=== PATIENT | female | born 1970 | race Caucasian/White ===

== ENCOUNTER 2018-10-28 16:05 | Emergency (ER) | payer OTHER ==
--- OUTSIDE RECORDS SUMMARY | 2018-10-28 16:42 | XMS REPORT ---
:1970 External Reference #:[id number] Author Organization [facility] Address [address] [place] [address] Phone [phone] Care Team Providers Name Role Phone Sharon Mendoza Care Team Information Bait Man Unavailable Sharon Mendoza Primary Care Physician Unavailable Payers Type Date Identification Numbers Payment Provider Subscriber Commercial Effective: Policy Number: [id number] Benefit Admin Carlos Bradshaw 2018 Pull Group Number: [id number] [address] [place] [phone] Problems Date Description Provider Status Onset: 08/17/2011 Depressive disorder Sharon Mendoza M.D. Active Onset: 08/17/2011 Dysmenorrhea Sharon Mendoza M.D. Active Onset: 08/17/2011 Allergic condition Sharon Mendoza M.D. Active Onset: 06/30/2013 Insomnia Sharon Mendoza M.D. Active Onset: 12/25/2015 Palpitations Sharon Mendoza M.D. Active Family History Date Family Member(s) Problem(s) Comments General No family hx lung colon breast CA. no uterine cervical, ovarian CA. No fam hx Diabetes Father ministrokes. Dementia. lives in [place]. Mother Healthy. smoker. Number of Children None First Brother healthy. [place]. First Sister healthy. Lives in [place]. Paternal Grandmother dementia. Maternal Grandfather [place] 60. Social History Type Date Description Comments Education Mfa from [facility]. Marital Status Patient has a significant other living independently since 12/2016. 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 General Grew up in [place]. Cigarette Use Never Smoked Cigarettes ETOH Use Occasional 1-2 glasses wine monthly. Smoking Nonsmoker Exercise Type/Frequency Exercises regularly. Walks Current 1/2 hour to an hour 5 times weekly. Seat Belt/Car Seat Always uses a seat belt Condom Use Patient frequently uses condoms Allergies, Adverse Reactions, Alerts Date Description Reaction Status Severity Comments 09/20/2011 Bupropion Jittery active 09/20/2011 5- HTP extremely vivid/disturbing dreams. active 06/15/2013 Reglan many reactions active 03/30/2017 Coconut active 06/29/2011 NKDA inactive Medications Medication Date Status Form Strength Qnty SIG Indications Ordering Provider Vitamin D 03/30/ Active 1200Iu/Dr 4 drops a Sharon Will 2016 fop day. Naomi Mendoza Nasonex 05/25/ Active Suspension 50mcg/Act 17uni 2 sprays J30.89 Sharon Will 2015 ts in each kan Mendoza M.D. daily Epipen 2-Shaun 06/29/ Active Device 0.3mg/0.3 1unit use as Sharon Will 2010 ML s directed Naomi Mendoza Claritin / Active Tablets 10mg 1 po qd Unknown 0000 Cholestyramine / Active Packet 4gm 1 unit by Unknown 0000 mouth every day Viberzi 10/13/ Hx Tablets 75mg 60tab 1 by mouth K58.0 Sharon Will 2015 twice Kelly, 12/11/ daily with M.DXena 2017 food Cipro 09/20/ Hx Tablets 250mg 14tab 1 by mouth R19.7 Sharon Will 2015 twice a Kelly 12/11/ day x 7 d M.DXena 2016 Vitamin D 02/10/ Hx Capsules [id number] 12cap take 1 E55.9 Sharon Will (Ergocalciferol) 2015 capsule by Kelly, 05/18/ mouth once M.D. 2016 weekly for 12 weeks. Meclizine HCL 02/10/ Hx Tablets 12.5mg 50tab 1-2 by H81.11 Sharon Will 2015 mouth four Kelly, 05/18/ times a M.D. 2016 day as needed dizziness Azithromycin 01/18/ Hx Tablets 250mg 6tabs 2 po 786.2 Sharon Will 2013 - . 1 Kelly, 06/14/ po daily x M.D. 2013 4 Ventolin HFA 01/18/ Hx Aerosol 108(90Bas 1unit 2 puffs 786.2 Sharon Will 2013 - e) s qid Kelly, 10/26/ mcg/Act M.D. 2019 Benzonatate 12/25/ Hx Capsules 200mg 90cap 1 po tid 462 Sharon Will 2013 - s Kelly, 01/17/ M.D. 2013 Valerian 08/21/ Hx Sharon Will 2012 - Kelly, 08/21/ M.D. 2012 Return To Work Hx full duty 780.52 Sharon Will 07/02/20132012 - Kelly, 07/09/ M.D. 2012 Nystatin 06/15/ Hx Suspension [id number] 150ml swish and Sharon Will 2012 - t/ML spit 5 ml Kelly, 06/30/ qid M.D. 2012 Valium 06/14/ Hx Tablets 2mg 45tab 1-3 pills Sharon Will 2012 - s at hs for Kelly, 01/17/ sleep pu M.D. 2013 dt Mycelex 06/13/ Hx Marjan 10mg 25uni use 5 x Francisco Morales 2013 - ts a day Breiman, 06/30/ M.D. 2012 Cefuroxime 06/09/ Hx Tablets 500mg 42tab 1 po bid x Sharon Will Axetil 2012 - s 21 days Kelly, 06/13/ M.D. 2012 Doxycycline 06/07/ Hx Tablets 100mg 42tab 1 po bid x 780.60 Sharon Will Hyclate 2012 - s 21 days on Kelly, 06/11/ empty M.D. 2013 stomach. Zofran 06/07/ Hx Tablets 4mg 60tab 1-2 po tid 787.01 Sharon Will 2012 - s Kelly, 06/13/ M.D. 2013 Ambien 02/19/ Hx Tablets 5mg 60tab 1-2 po 780.52 Sharon Will 2012 - s qhs prn Kelly, M.DXena 2012 Omeprazole 02/07/ Hx Capsules DR 20mg 30cap 1 po qd 789.06 Sharon Will 2011 - s Kelly, 05/05/ M.D. 2011 Ibuprofen 06/29/ Hx Capsules 200mg prn, prior Sharon Will 2010 - to Kelly, . MXenaD. 2011 Claritin / Hx Tablets 10mg 10tab 1 po qd Unknown 0000 - s 2011 Progesterone / Hx Capsules 150mg 90cap 1 by mouth Unknown 0000 - s qhs 2012 Progesterone / Hx Capsules Unknown 0000 - 2013 Iron / Hx Tablets 325(65Fe) 1 by mouth Unknown 0000 - mg twice a 2015 Immunizations CPT Code Status Date Vaccine Lot # [id number] Given 05/24/2012 Tdap Tetanus, W Pertussis Vital Signs Date Vital Result Comment 10/26/2018 BP Systolic 92 mmHg BP Diastolic 68 mmHg Heart Rate 84 /min Body Temperature 97.6 F Respiratory Rate 18 /min Height 61.5 inches 5'1.50" stated Weight 120.50 lb BMI (Body Mass Index) 22.4 kg/m2 10/19/2017 BP Systolic 100 mmHg BP Diastolic 62 mmHg Heart Rate 68 /min Body Temperature 97.8 F Height 61.5 inches 5'1.50" stated Weight 114.38 lb BMI (Body Mass Index) 21.3 kg/m2 03/30/2017 BP Systolic 100 mmHg BP Diastolic 70 mmHg Heart Rate 80 /min Body Temperature 98.8 F Respiratory Rate 16 /min Weight 113.00 lb 01/29/2017 BP Systolic 100 mmHg BP Diastolic 70 mmHg Heart Rate 68 /min Body Temperature 98.8 F Respiratory Rate 18 /min Weight 112.00 lb 12/11/2016 BP Systolic 90 mmHg BP Diastolic 60 mmHg Heart Rate 78 /min Body Temperature 98.8 F Respiratory Rate 16 /min Height 60 inches 5'0" Weight 113.12 lb BMI (Body Mass Index) 22.1 kg/m2 10/13/2016 BP Systolic 110 mmHg BP Diastolic 66 mmHg Heart Rate 78 /min Body Temperature 98.0 F Respiratory Rate 16 /min Height 60 inches 5'0" Weight 118.25 lb BMI (Body Mass Index) 23.1 kg/m2 09/20/2016 BP Systolic 100 mmHg BP Diastolic 60 mmHg Heart Rate 60 /min Body Temperature 99.1 F Respiratory Rate 16 /min Height 60 inches 5'0" Weight 124.00 lb BMI (Body Mass Index) 24.2 kg/m2 05/25/2016 BP Systolic 100 mmHg BP Diastolic 60 mmHg Heart Rate 68 /min Body Temperature 98.1 F Respiratory Rate 16 /min Height 60 inches 5'0" Weight 120.00 lb BMI (Body Mass Index) 23.4 kg/m2 Right Visual Acuity Distance 20/20 Left Visual Acuity Distance 20/20 05/18/2016 BP Systolic 90 mmHg BP Diastolic 60 mmHg Heart Rate 76 /min Body Temperature 98.8 F Respiratory Rate 16 /min Height 60.5 inches 5'0.50" Weight 120.00 lb BMI (Body Mass Index) 23.0 kg/m2 04/06/2016 BP Systolic 90 mmHg BP Diastolic 60 mmHg Heart Rate 60 /min Body Temperature 98.6 F Respiratory Rate 18 /min Height 60.5 inches 5'0.50" Weight 123.00 lb BMI (Body Mass Index) 23.6 kg/m2 02/11/2016 BP Systolic 102 mmHg BP Diastolic 70 mmHg Heart Rate 72 /min Body Temperature 98.6 F Height 60.5 inches 5'0.50" Weight 124.00 lb BMI (Body Mass Index) 23.8 kg/m2 12/25/2015 BP Systolic 100 mmHg BP Diastolic 60 mmHg Heart Rate 60 /min Body Temperature 98.0 F Respiratory Rate 18 /min Height 60.5 inches 5'0.50" Weight 120.00 lb BMI (Body Mass Index) 23.0 kg/m2 10/13/2015 BP Systolic 124 mmHg BP Diastolic 74 mmHg Heart Rate 84 /min Body Temperature 99.9 F Respiratory Rate 16 /min Height 60.5 inches 5'0.50" Weight 121.12 lb BMI (Body Mass Index) 23.3 kg/m2 06/14/2014 BP Systolic 100 mmHg BP Diastolic 66 mmHg Heart Rate 84 /min Body Temperature 97.0 F Respiratory Rate 16 /min Height 60.5 inches 5'0.50" Weight 121.00 lb BMI (Body Mass Index) 23.2 kg/m2 01/18/2014 BP Systolic 104 mmHg BP Diastolic 70 mmHg Heart Rate 96 /min Body Temperature 96.8 F Height 60.5 inches 5'0.50" Weight 121.50 lb BMI (Body Mass Index) 23.3 kg/m2 12/25/2013 BP Systolic 98 mmHg BP Diastolic 62 mmHg Heart Rate 80 /min Body Temperature 101.2 F Respiratory Rate 16 /min Height 60.5 inches 5'0.50" Weight 128.00 lb BMI (Body Mass Index) 24.6 kg/m2 08/21/2013 BP Systolic 118 mmHg BP Diastolic 68 mmHg Heart Rate 80 /min Body Temperature 98.3 F Respiratory Rate 14 /min Height 60.5 inches 5'0.50" Weight 128.00 lb BMI (Body Mass Index) 24.6 kg/m2 07/09/2013 BP Systolic 100 mmHg BP Diastolic 60 mmHg Heart Rate 92 /min Body Temperature 99.3 F Height 60.5 inches 5'0.50" Weight 133.00 lb BMI (Body Mass Index) 25.5 kg/m2 06/30/2013 BP Systolic 120 mmHg BP Diastolic 70 mmHg Heart Rate 78 /min Body Temperature 98.1 F Respiratory Rate 16 /min Height 60.5 inches 5'0.50" Weight 133.38 lb BMI (Body Mass Index) 25.6 kg/m2 06/13/2013 BP Systolic 110 mmHg BP Diastolic 80 mmHg Heart Rate 84 /min Body Temperature 98.8 F Respiratory Rate 15 /min Height 60.5 inches 5'0.50" Weight 135.00 lb BMI (Body Mass Index) 25.9 kg/m2 06/07/2013 BP Systolic 120 mmHg BP Diastolic 70 mmHg Heart Rate 80 /min Body Temperature 99.7 F Respiratory Rate 16 /min Height 60.5 inches 5'0.50" Weight 142.00 lb BMI (Body Mass Index) 27.3 kg/m2 04/24/2013 BP Systolic 80 mmHg BP Diastolic 52 mmHg Heart Rate 64 /min Body Temperature 98.2 F Respiratory Rate 16 /min Height 60.5 inches 5'0.50" Weight 144.00 lb BMI (Body Mass Index) 27.7 kg/m2 02/19/2013 BP Systolic 116 mmHg BP Diastolic 66 mmHg Heart Rate 60 /min Body Temperature 98.2 F Respiratory Rate 16 /min Height 60.5 inches 5'0.50" Weight 146.12 lb BMI (Body Mass Index) 28.1 kg/m2 10/27/2012 BP Systolic 110 mmHg BP Diastolic 74 mmHg Heart Rate 66 /min Body Temperature 97.5 F Height 60.5 inches 5'0.50" Weight 144.00 lb BMI (Body Mass Index) 27.7 kg/m2 09/30/2012 BP Systolic 102 mmHg BP Diastolic 68 mmHg Heart Rate 68 /min Body Temperature 98.9 F Height 60.5 inches 5'0.50" Weight 145.00 lb BMI (Body Mass Index) 27.8 kg/m2 05/05/2012 BP Systolic 102 mmHg BP Diastolic 62 mmHg Heart Rate 66 /min Body Temperature 98.6 F Height 60.5 inches 5'0.50" Weight 143.00 lb BMI (Body Mass Index) 27.5 kg/m2 02/08/2012 BP Systolic 92 mmHg BP Diastolic 70 mmHg Heart Rate 62 /min Body Temperature 98.9 F Respiratory Rate 20 /min Height 60.5 inches 5'0.50" Weight 142.00 lb BMI (Body Mass Index) 27.3 kg/m2 01/12/2012 BP Systolic 90 mmHg BP Diastolic 60 mmHg Heart Rate 84 /min Body Temperature 98.8 F Height 60.5 inches 5'0.50" Weight 142.00 lb BMI (Body Mass Index) 27.3 kg/m2 09/20/2011 BP Systolic 100 mmHg BP Diastolic 70 mmHg Heart Rate 80 /min Body Temperature 98.7 F Height 60.5 inches 5'0.50" Weight 142.00 lb BMI (Body Mass Index) 27.3 kg/m2 08/17/2011 BP Systolic 94 mmHg BP Diastolic 56 mmHg Heart Rate 72 /min Height 60.5 inches 5'0.50" Weight 141.00 lb BMI (Body Mass Index) 27.1 kg/m2 Right Visual Acuity Distance 20/20 uncorrected Left Visual Acuity Distance 20/20 06/29/2011 BP Systolic 108 mmHg BP Diastolic 60 mmHg Heart Rate 60 /min Body Temperature 97.2 F Height 60.5 inches 5'0.50" Weight 141.00 lb BMI (Body Mass Index) 27.1 kg/m2 Results Test Date Test Result H/L Range Note Laboratory test finding 11/24/2017 Iron (Fe) 56 g/dL 50-212 Ferritin 50.3 ng/mL 11-307 Estradiol 239 pg/mL 1 Vitamin D Total 25(Oh) 56.4 ng/mL High 20-50 Progesterone 0.5 ng/mL 2 Dhea Sulfate 101 g/dL 18-244 3 Testosterone Free & Total 11/24/2017 Free Testosterone ng/dl 0.44 ng/dL 0.06-0.95 4 Testosterone 23 ng/dL 8-60 5 CBC Auto Diff 03/04/2017 White Blood Count 11.3 10^3/uL High 3.5-10.8 Red Blood Count 4.08 10^6/uL 4.0-5.4 Hemoglobin 13.0 g/dL 12.0-16.0 Hematocrit 39 % 35-47 Mean Corpuscular Volume 96 fL 80-97 Mean Corpuscular Hemoglobin 32 pg High 27-31 Mean Corpuscular HGB Conc 33 g/dL 31-36 Red Cell Distribution Width 14 % 10.5-15 Platelet Count 216 10^3/uL 150-450 Mean Platelet Volume 9 um3 7.4-10.4 Abs Neutrophils 7.5 10^3/uL 1.5-7.7 Abs Lymphocytes 2.8 10^3/uL 1.0-4.8 Abs Monocytes 0.6 10^3/uL 0-0.8 Abs Eosinophils 0.3 10^3/uL 0-0.6 Abs Basophils 0.1 10^3/uL 0-0.2 Abs Nucleated RBC 0 10^3/uL Granulocyte % 66.5 % 38-83 Lymphocyte % 24.6 % Low 25-47 Monocyte % 5.7 % 1-9 Eosinophil % 2.4 % 0-6 Basophil % 0.8 % 0-2 Nucleated Red Blood Cells % 0 Laboratory test finding 03/04/2017 Magnesium 2.1 mg/dL 1.9-2.7 Iron (Fe) 83 g/dL 50-212 TSH (Thyroid Stim Horm) 4.86 mcIU/mL 0.34-5.60 Free T4 (Free Thyroxine) 0.67 ng/dL 0.61-1.12 T3 Free 2.80 pg/mL 2.5-3.9 Ferritin 36.0 ng/mL 11-307 Folic Acid (Folate) > 20.00 ng/mL >3.99 Vitamin B12 814 pg/mL 180-914 6 Vitamin D Total 25(Oh) 75.8 ng/mL High 30-50 Dhea Sulfate 142 g/dL 18-244 7 Selenium 104 ng/mL 70-150 8 Vitamin B1 (Whole Blood) 149 nmol/L 70-180 9 Laboratory test 11/25/2016 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 SEE RESULT BELOW 10 finding Laboratory test 11/15/2016 Surgical Pathology SEE RESULT BELOW 11, 12 finding Laboratory test 10/01/2016 C Difficile PCR SEE RESULT BELOW 13 finding Lyme Western Blot 09/30/2016 Lyme Disease IgG Ab Negative Negative WB Lyme Disease IgG Bands Present p41, kDa Lyme Disease IgM Ab WB Negative Negative Lyme Disease IgM Bands Present p41, kDa Lyme Disease Interpretation See Comment 14 Laboratory test finding 09/21/2016 Stool Culture SEE RESULT BELOW 15 Laboratory test finding 06/11/2016 Urine Negative Negative 16 Comprehensive Metabolic 05/25/2016 Sodium 139 mEq/L 134-149 Prof Potassium 4.6 mEq/L 3.6-5.5 Chloride 103 mEq/L 94-112 Carbon Dioxide 25 mEq/L 21-32 Glucose 112 mg/dL High 70-105 BUN 13 mg/dL 6-26 Creatinine 0.6 mg/dL 0.6-1.4 BUN/Creat Ratio 21.7 CALC 8.0-36.0 Calcium 8.7 mg/dL 8.6-10.2 Total Protein 7.1 g/dL 6.4-8.3 Albumin 3.9 g/dL 3.8-5.5 Globulin 3.2 g/dL 2.0-4.8 A/G Ratio 1.2 CALC 0.6-2.3 Alk. Phosphatase 47 U/L 30-110 Alt (SGPT) 12 U/L 7-35 Ast (Sgot) 13 U/L 5-34 Total Bilirubin 0.2 mg/dL 0.2-1.3 GFR Non- >60 ml/min/1.73m^ >=60 GFR >60 ml/min/1.73m^ >=60 Laboratory test finding 04/06/2016 Ferritin 25 ng/mL 15-200 17 Laboratory test finding 12/25/2015 Ferritin 12 ng/mL Low 15-200 TSH 1.55 mIU/L 0.50-6.00 Free T4 1.20 ng/dL 0.75-1.54 Vitamin D25 20 Low 30-100 Laboratory test finding 10/07/2015 Magnesium 2.0 mg/dL 1.9-2.7 Troponin I 0.00 ng/mL <0.03 18 TSH (Thyroid Stim Horm) 2.32 ?IU/mL 0.34-5.60 Comp Metabolic Panel 10/07/2015 Sodium 134 mmol/L 133-145 Potassium 3.7 mmol/L 3.5-5.0 Chloride 103 mmol/L 101-111 Co2 Carbon Dioxide 24 mmol/L 22-32 Anion Gap 7 mmol/L 2-11 Glucose 152 mg/dL High 70-100 Blood Urea Nitrogen 8 mg/dL 6-24 Creatinine 0.84 mg/dL 0.51-0.95 BUN/Creatinine Ratio 9.5 8-20 Calcium 9.2 mg/dL 8.6-10.3 Total Protein 7.6 g/dL 6.4-8.9 Albumin 4.5 g/dL 3.2-5.2 Globulin 3.1 g/dL 2-4 Albumin/Globulin Ratio 1.5 1-3 Total Bilirubin 0.50 mg/dL 0.2-1.0 Alkaline Phosphatase 42 U/L 34-104 Alt 10 U/L 7-52 Ast 14 U/L 13-39 Egfr Non- 73.3 >60 Egfr 94.3 >60 19 CBC Auto Diff 10/07/2015 White Blood Count 7.9 10^3/uL 3.5-10.8 Red Blood Count 4.45 10^6/uL 4.0-5.4 Hemoglobin 14.5 g/dL 12.0-16.0 Hematocrit 43 % 35-47 Mean Corpuscular Volume 96 fL 80-97 Mean Corpuscular Hemoglobin 33 pg High 27-31 Mean Corpuscular HGB Conc 34 g/dL 31-36 Red Cell Distribution Width 13 % 10.5-15 Platelet Count 237 10^3/uL 150-450 Mean Platelet Volume 8 um3 7.4-10.4 Abs Neutrophils 6.2 10^3/uL 1.5-7.7 Abs Lymphocytes 1.2 10^3/uL 1.0-4.8 Abs Monocytes 0.4 10^3/uL 0-0.8 Abs Eosinophils 0 10^3/uL 0-0.6 Abs Basophils 0.1 10^3/uL 0-0.2 Abs Nucleated RBC 0 10^3/uL Granulocyte % 78.4 % 38-83 Lymphocyte % 15.1 % Low 25-47 Monocyte % 5.2 % 1-9 Eosinophil % 0.5 % 0-6 Basophil % 0.8 % 0-2 Nucleated Red Blood Cells % 0 Laboratory test finding 12/25/2013 Quickstrep NEGATIVE Negative Throat - Beta Strep Fma NEG@48HRS Clotest 10/19/2013 Clotest (SEE NOTE) 20 Surgical Pathology 10/19/2013 S RUN DATE: 10/22/ <SEE 21 NOTE> Laboratory test finding 08/21/2013 TSH 0.98 mIU/L 0.50-6.00 Comprehensive Metabolic Prof 06/30/2013 Albumin 4.5 g/dL 3.8-5.5 Alk. Phos. 79 U/L 30-110 Alt (SGPT) 37 U/L High 7-35 22 Ast (Sgot) 26 U/L 5-34 BUN 12 mg/dL 6-26 Calcium 9.7 mg/dL 8.6-10.2 Chloride 100 mEq/L 94-112 Creatinine 0.7 mg/dL 0.6-1.4 Carbon Dioxide 25 mEq/L 21-32 Glucose 89 mg/dL 70-105 Sodium 134 mEq/L 134-149 Total Bilirubin 0.6 mg/dL 0.2-1.3 Total Protein 7.7 g/dL 6.3-8.1 Potassium 4.3 mEq/L 3.6-5.5 Globulin 3.2 g/dL 2.0-4.8 A/G Ratio 1.4 Calc 0.6-2.3 BUN/Creat Ratio 16.6 Calc 8.0-36.0 Vitamin D, 25 Hydroxy 06/30/2013 25-Hydroxy Vitamin D2 <4.0 ng/mL 25-Hydroxy Vitamin D3 32 ng/mL 25-Hydroxy Vitamin D Total 32 ng/mL 23 CBC Electronic (a) 06/13/2013 WBC 14.1 High 3.6-9.6 24 RBC 4.33 3.90-5.70 Hemoglobin (Fma/CMC/CTX) 13.5 g/dL 12.1 - 17.2 Hematocrit (Fma/CMC/CTX) 40.1 % 36.1 - 50.3 Platelets 359 10^3/ul 150-400 Lymph% 28.0 20.5-51.1 Mixed% 7.5 Neutrophils % 64.5 Mean Corpuscular Vol 92 82.2-97.4 Mean Corpuscular Hemoglobin 31.0 27.6-33.3 Mean Corpuscular Hemo Concen 33.6 32.0-36.0 RDW 12.0 11.6-13.7 Mean Platelet Volume 7.3 6.5-11.0 Hepatitis Acute Panel 06/13/2013 Hepatitis B Surface Nonreactive Nonreactive Antigen Hepatitis B Core IgM Nonreactive Nonreactive Hepatitis A AB IgM Nonreactive Nonreactive Hepatitis C Antibody Nonreactive Nonreactive Comprehensive Metabolic Prof 06/13/2013 Albumin 4.5 g/dL 3.8-5.5 Alk. Phos. 259 U/L High 30-110 25 Alt (SGPT) 534 U/L High 7-35 26 Ast (Sgot) 164 U/L High 5-34 27 BUN 7 mg/dL 6-26 Calcium 9.3 mg/dL 8.6-10.2 Chloride 100 mEq/L 94-112 Creatinine 0.8 mg/dL 0.6-1.4 Carbon Dioxide 27 mEq/L 21-32 Glucose 111 mg/dL High 70-105 28 Sodium 135 mEq/L 134-149 Total Bilirubin 1.0 mg/dL 0.2-1.3 Total Protein 7.4 g/dL 6.3-8.1 Potassium 4.4 mEq/L 3.6-5.5 Globulin 2.9 g/dL 2.0-4.8 A/G Ratio 1.6 Calc 0.6-2.3 BUN/Creat Ratio 8.6 Calc 8.0-36.0 CBC Auto Diff 06/08/2013 White Blood Count 3.6 10^3/uL Low 4.8-10.8 Red Blood Count 4.37 10^6/uL 4.0-5.4 Hemoglobin 13.7 g/dL 12.0-16.0 Hematocrit 40 % 35-47 Mean Corpuscular Volume 90 fL 80-97 Mean Corpuscular Hemoglobin 31 pg 27-31 Mean Corpuscular HGB Conc 35 g/dL 31-36 Red Cell Distribution Width 13 % 10.5-15 Platelet Count 110 10^3/uL Low 150-450 Mean Platelet Volume 9 um3 7.4-10.4 Abs Neutrophils 2.4 10^3/uL 1.5-7.7 Abs Lymphocytes 1.1 10^3/uL 1.0-4.8 Abs Monocytes 0.1 10^3/uL 0-0.8 Abs Eosinophils 0 10^3/uL 0-0.6 Abs Basophils 0 10^3/uL 0-0.2 Abs Nucleated RBC 0.01 10^3/uL Granulocyte % 65.4 % 38-83 Lymphocyte % 29.9 % 25-47 Monocyte % 3.0 % 1-9 Eosinophil % 0.8 % 0-6 Basophil % 0.9 % 0-2 Nucleated Red Blood Cells % 0.2 Comp Metabolic Panel 06/08/2013 Sodium 129 mmol/L Low 133-145 Potassium 3.3 mmol/L Low 3.5-5.0 Chloride 97 mmol/L Low 101-111 Co2 Carbon Dioxide 24.0 mmol/L 22-32 Anion Gap 8.0 mmol/L 2-11 Glucose 111 mg/dL High 70-100 Blood Urea Nitrogen 8 mg/dL 6-24 Creatinine 0.80 mg/dL 0.50-1.40 BUN/Creatinine Ratio 10.0 8-20 Calcium 8.5 mg/dL 8.1-9.9 Total Protein 6.9 g/dL 6.2-8.1 Albumin 3.6 g/dL 3.6-5.4 Globulin 3.3 g/dL 2-4 Albumin/Globulin Ratio 1.1 1-3 Total Bilirubin 3.0 mg/dL High 0.4-1.5 Alkaline Phosphatase 224 U/L High 30-110 Alt 99 U/L High 14-54 Ast 96 U/L High 12-42 Egfr Non- 78.3 >60 Egfr 100.7 >60 29 Laboratory test finding 06/08/2013 Monospot Negative Negative Laboratory test finding 06/07/2013 Babesiosis Evaluation <1:64 titer <1: 64 30 CBC Electronic (a) 06/07/2013 WBC 4.8 3.6-9.6 RBC 4.62 3.90-5.70 Hemoglobin (Fma/CMC/CTX) 14.5 g/dL 12.1 - 17.2 Hematocrit (Fma/CMC/CTX) 43.0 % 36.1 - 50.3 Platelets 117 10^3/ul Low 150-400 Lymph% 8.0 Low 20.5-51.1 Mixed% 3.7 Neutrophils % 88.3 Mean Corpuscular Vol 93 82.2-97.4 Mean Corpuscular Hemoglobin 31.3 27.6-33.3 Mean Corpuscular Hemo Concen 33.7 32.0-36.0 RDW 11.1 Low 11.6-13.7 Mean Platelet Volume 6.9 6.5-11.0 Comprehensive Metabolic Prof 06/07/2013 Albumin 4.1 g/dL 3.8-5.5 Alk. Phos. 172 U/L High 30-110 31 Alt (SGPT) 118 U/L High 7-35 32 Ast (Sgot) 115 U/L High 5-34 33 BUN 14 mg/dL 6-26 Calcium 8.5 mg/dL Low 8.6-10.2 34 Chloride 96 mEq/L 94-112 Creatinine 1.0 mg/dL 0.6-1.4 Carbon Dioxide 25 mEq/L 21-32 Glucose 105 mg/dL 70-105 Sodium 126 mEq/L Low 134-149 35 Total Bilirubin 3.3 mg/dL High 0.2-1.3 36 Total Protein 6.8 g/dL 6.3-8.1 Potassium 3.7 mEq/L 3.6-5.5 Globulin 2.6 g/dL 2.0-4.8 A/G Ratio 1.6 Calc 0.6-2.3 BUN/Creat Ratio 15.2 Calc 8.0-36.0 Total And Direct Bili 06/07/2013 Direct Bilirubin 2.3 mg/dL High 0.0-0.6 Indirect Bilirubin 1.03 High 0.10-1.00 Laboratory test finding 06/07/2013 Monospot (Fma/Centrex) NEGATIVE Lyme Western Blot 06/07/2013 Lyme Disease IgG Ab WB Negative Negative Lyme Disease IgG Bands Present p41, kDa Lyme Disease IgM Ab WB Negative Negative Lyme Disease IgM Bands Present No bands detecte <SEE NOTE> kDa 37 Lyme Disease Interpretation See Comment 38 Ehrlichia Igg & Igm Abs 06/07/2013 Anaplasma phagocytophila IgG <1:64 titer <1:64 39 Ehrlichia chaffeensis IgG AB <1:64 titer <1:64 40 Laboratory test 05/12/2013 Lyme Disease Negative Negative 41 finding Serology Laboratory test 04/29/2013 [facility] Lab Test HORMONE REPORT See Image Report finding CBC Electronic 02/19/2013 WBC 10.2 High 3.6-9.6 (Fma) RBC 4.13 3.90-5.70 Hemoglobin (Fma/CMC/CTX) 13.0 g/dL 12.1 - 17.2 Hematocrit (Fma/CMC/CTX) 38.6 % 36.1 - 50.3 Platelets 264 10^3/ul 150-400 Lymph% 27.7 20.5-51.1 Mixed% 4.5 Neutrophils % 67.8 Mean Corpuscular Vol 94 82.2-97.4 Mean Corpuscular Hemoglobin 31.5 27.6-33.3 Mean Corpuscular Hemo Concen 33.7 32.0-36.0 RDW 13.7 11.6-13.7 Mean Platelet Volume 6.7 6.5-11.0 Laboratory test finding 02/19/2013 Ferritin 18 ng/mL 6-115 Laboratory test finding 10/27/2012 TSH 1.43 mIU/L 0.50-6.00 Laboratory test finding 10/27/2012 Prolactin 19.2 ng/ml 42, 43 CBC Auto Diff 05/13/2012 White Blood Count 11.4 CUMM High 4.8-10.8 Red Cell Count 3.97 CUMM Low 4.2-5.4 Hemoglobin 13.0 g/dL 12.0-16.0 Hematocrit 37 % 35-47 Mean Corpuscular Volume 93 um3 79-97 Mean Corpuscular Hemoglob 33 pg High 27-31 Mean Corpuscular HGB Cone 35 g/dL 32-36 Redcell Distribution WDTH 13 % 10.5-15 Platelet Count 253 CUMM 150-450 Mean Platelet Volume 8.0 um3 7.4-10.4 Gran % 77.1 % 38-83 Lymph % 15.5 % Low 20-45 Mononuclear % 5.2 % 1-9 Eosinophil % 1.7 % 0-6 Basophil % 0.5 % 0-2 Abs Lymphs 1.8 1.0-4.8 Abs Mononuclear 0.6 0-0.8 Absolute Neutrophil Count 8.8 High 1.5-7.7 Abs Eosinophils 0.2 0-0.6 Abs Basophils 0.1 0-0.2 Laboratory test finding 05/13/2012 (HCG) Serum NEGATIVE Negative 44 Comp Metabolic Panel 05/13/2012 Sodium 137 mmol/L 135-145 Potassium 4.1 mmol/L 3.5-5.0 Chloride 106 mmol/L 101-111 Co2 (Carbon Dioxide) 26.0 mmol/L 22-32 Anion Gap 5.0 mmol/L 2-11 45 Glucose 97 mg/dL 70-100 BUN 11 mg/dL 6-24 Creatinine 0.8 mg/dL 0.50-1.40 One Over Creatinine 1.25 BUN/Creatinine Ratio 13.8 8-20 Calcium 9.3 mg/dL 8.1-9.9 Total Protein 7.5 GM/DL 6.2-8.1 Albumin 4.0 GM/DL 3.6-5.4 Globulin 3.5 GM/DL 2-4 Albumin/Globulin Ratio 1.1 1-3 Bilirubin Total 0.5 mg/dL 0.4-1.5 46 Alkaline Phosphatase 45 U/L 30-110 Alt (SGPT) 18 U/L 14-54 Ast (Sgot) 23 U/L 12-42 eGFR Non- 78.7 > 60 eGFR 101.2 > 60 47 Laboratory test finding 05/13/2012 Magnesium 2.0 mg/dL 1.7-2.6 Laboratory test finding 05/05/2012 Hemoglobin A1c ([facility] [place]) 5.3 % 4.1- 5.7 Lipid Profile 05/05/2012 Cholesterol 191 mg/dL 120-200 HDL 45 mg/dL 30-85 Triglycerides 80 mg/dL 30-200 HDL Risk Factor 4.2 CALC High 0.0-4.0 LDL (Calculated) 130 CALC High 0-129 VLDL (Calculated) 16 mg/dL 0-50 [place] Pylori Antigen- 02/09/2012 M <SEE NOTE> 48 Stool Ua - Non Micro ([facility]) 02/08/2012 Appearance CLEAR Color YELLOW Glucose NEG Bilirubin NEG Ketones NEG SP Grav 1.010 Blood TRACE-LYSED no micro per provide PH 5.5 Protein NEG Urobil 0.2 Nitrite NEG Leukocytes (a/[facility] [place]) NEG Laboratory test finding 08/31/2011 Vitamin D, 25 Oh 36.9 ng/mL 32.0- 100.0 49 Comprehensive Metabolic Prof 08/31/2011 Albumin 4.4 g/dL 3.8-5.5 Alk. Phos. 48 U/L 30-110 Alt (SGPT) 16 U/L 7-35 Ast (Sgot) 17 U/L 5-34 BUN 15 mg/dL 6-26 Calcium 8.8 mg/dL 8.6-10.2 Chloride 104 mEq/L 94-112 Creatinine 0.8 mg/dL 0.6-1.4 Carbon Dioxide 21 mEq/L 21-32 Glucose 105 mg/dL 70-105 Sodium 135 mEq/L 134-149 Total Bilirubin 0.4 mg/dL 0.2-1.3 Total Protein 6.9 g/dL 6.3-8.1 Potassium 4.3 mEq/L 3.6-5.5 Globulin 2.5 g/dL 2.0-4.8 A/G Ratio 1.7 Calc 0.6-2.2 BUN/Creat Ratio 18.3 Calc 8.0-36.0 Laboratory test finding 08/31/2011 Free T3 2.85 pg/mL 2.00-4.90 Free T4 0.96 ng/dL 0.75-1.54 TSH 1.67 mIU/L 0.50-6.00 Lipid Profile 08/31/2011 Cholesterol 173 mg/dL 120-200 HDL 44 mg/dL 30-85 Triglycerides 65 mg/dL 30-200 HDL Risk Factor 3.9 CALC 0.0-4.0 LDL (Calculated) 116 CALC 0-129 VLDL (Calculated) 13 mg/dL 0-50 CBC Electronic ([facility]) 08/31/2011 WBC 6.2 3.6-9.6 RBC 3.85 Low 3.90-5.70 Hemoglobin (Fma/CMC/CTX) 12.3 g/dL 12.1 - 17.2 Hematocrit (a/CMC/CTX) 35.9 % Low 36.1 - 50.3 Platelets 290 10^3/ul 150-400 Lymph% 28.9 20.5-51.1 Mixed% 6.7 Neutrophils % 64.4 Mean Corpuscular Vol 93 82.2-97.4 Mean Corpuscular Hemoglobin 32.0 27.6-33.3 Mean Corpuscular Hemo Concen 34.3 32.0-36.0 RDW 11.7 11.6-13.7 Mean Platelet Volume 7.9 6.5-11.0 Laboratory test finding 08/17/2011 Urine Culture No growth. Ua - Micro ([facility]) 08/17/2011 Appearance clear Color yellow Glucose, Urine (a/CMC/CTX) - Bilirubin - Ketones - SP Grav 1.020 Blood trace PH 7.0 Protein - Urobil 0.2 Nitrite - Leukocytes (a/[facility]) small Hyaline - /Lpf Granular - /Lpf WBC (Fma,[facility]) 6-8 RBC 0-1 Mucus (Fma/CBC/[facility]) - /Lpf Epith few /Lpf Bacteria trace /Hpf Amorphous (Fma/CMC/[facility]) - /Lpf Crystals, Fluid (Fma/CMC/CTX) - Z#Comments - 1 Estradiols <40 pg/mL are sent to a reference lab for low range testing. Postmenopausal Females < 20 Ovulating females: by day in cycle relative to LH Peak Follicular phase - 12 10-50 - 4 60-200 Mid-cycle - 1 120-375 Luteal phase + 2 50-155 + 6 60-260 + 12 15-115 2 Female reference ranges for Progesterone: Follicular phase.......0.3 - 1.5 ng/ml Mid-luteal phase.......5.2 - 18.5 ng/ml Postmenopausal.........< 0.8 ng/ml 1st trimester.........4.7 - 50.0 ng/ml 2nd trimester.........19.4 - 45.3 ng/ml 3 Test Performed by: [facility] [employer] [facility] [employer] [address] [place] [address] 4 ADDITIONAL INFORMATION Testing performed by [facility]. This test was developed and its performance characteristics determined by [facility] in a manner consistent with CLIA requirements. This test has not been cleared or approved by the U.S. Food and Drug Administration. 5 ADDITIONAL INFORMATION Testing performed by Liquid Chromatography-Tandem Mass Spectrometry (LC-MS/MS). This test was developed and its performance characteristics determined by [facility] in a manner consistent with CLIA requirements. This test has not been cleared or approved by the U.S. Food and Drug Administration. Test Performed by: [facility] [employer] [address] [place] [address] 6 Normal Range 180 to 914 Indeterminate Range 145 to 180 Deficient Range <145 7 Test Performed by: [facility] - [address] [address] 8 ADDITIONAL INFORMATION This test was developed and its performance characteristics determined by [facility] in a manner consistent with CLIA requirements. This test has not been cleared or approved by the U.S. Food and Drug Administration. Test Performed by: [facility] - [address] [address] 9 ADDITIONAL INFORMATION This test was developed and its performance characteristics determined by [facility] in a manner consistent with CLIA requirements. This test has not been cleared or approved by the U.S. Food and Drug Administration. Test Performed by: [facility] - [address] [address] 10 SEE RESULT BELOW Name: LEEANN,CARLOS E : [address]: Uday Oshea MD Acct: [id number] Unit: [id number] AGE: 45 Location: THYROID Re11/25/16 SEX: F Status: REG REF SPEC: [id number] WHITNEY: 11/25/16-[address]: Arianne Wall MD REQ: [id number] RECD: 11/25/16 STATUS: PARIS HART DR: Uday Mendoza MD _ ORDERED: FN ASP DEEP, FNA Imme St Add, FNA IMMEDIATE S FINAL DIAGNOSIS Thyroid, left inferior, Ultrasound guided, fine needle aspiration: --Benign thyroid nodule- involutional type (Irwin Class II). The specimen demonstrates abundant watery proteinaceous fluid, a modest amount of benign appearing follicular epithelium arranged in uniform sheets, medium sized follicles and only occasional small groups. Abundant pigmented and non-pigmented macrophages are seen in the background. No features of papillary carcinoma are seen. In this clinical setting the risk of malignancy is less than 3%. Clinical management of this thyroid nodule should be based on clinical and radiographic features as well as the above findings. THYROID LEFT - US GUIDED FINE NEEDLE ASPIRATION LEFT INFERIOR CLINICAL HISTORY Left inferior thyroid nodule 2.7cm CONTINUED ON NEXT PAGE * ML=Testing performed at Main Lab DEPARTMENT OF PATHOLOGY, [address] [place] [address] Alf Villarreal M.D. Director [facility] # [id number] RUN DATE: 11/25/16 [facility] LAB LIVE PAGE 2 Patient: CARLOS BRADSHAW Matt [id number] (Continued) IMMEDIATE INTERPRETATION (Continued) IMMEDIATE INTERPRETATION Pass 1-inadequate, pass 2-adequate GROSS DESCRIPTION 4- alcohol fixed slide(s) 2 - passes Needle rinse in CytoLyt solution for thin layer non-right of way clearer test. Signed (signature on file) Kat Decker MD 12/10 1104 END OF REPORT * ML=Testing performed at Main Lab DEPARTMENT OF PATHOLOGY, [address] [place] [address] Alf Villarreal M.D. Director [facility] # [id number] 11 [id number] 12 SEE RESULT BELOW Name: CARLOS BRADSHAW Matt : [address]: Stanford Suarez MD Acct: [id number] Unit: [id number] AGE: 45 Location: ENDOCEC Re11/15/16 SEX: F Status: DEP REF SPEC: [id number] WHITNEY: 11/15/16-[address]: Stanford Suarez MD REQ: [id number] RECD: 11/15/16-1601 STATUS: PARIS HART DR: Sharon Mendoza MD _ ORDERED: LEVEL IV COMMENTS: [id number] FINAL DIAGNOSIS Colon, random, biopsy: -- Lymphocytic colitis. CLINICAL HISTORY Diarrhea POST-OPERATIVE DIAGNOSIS Colonoscopy into terminal ileum, prep good - normal, no ileitis, colitis, polyp, biopsies obtained. Conclusions/Plan: Normal colonoscopy GROSS DESCRIPTION The specimen is received in formalin labeled, Random Colon Biopsies, and consists of three webster-pink irregular to polypoid soft tissue fragments measuring 0.3 x 0.2 x 0.1 cm 0.3 x 0.2 a 0.2 cm and 0.5 x 0.3 x 0.1 cm; which are entirely submitted in one cassette. Signed (signature on file) Kat Decker MD 1056 END OF REPORT * ML=Testing performed at Main Lab DEPARTMENT OF PATHOLOGY, [address] [place] [address] Alf Villarreal M.D. Director [facility] # [id number] 13 SEE RESULT BELOW Name: CARLOS BRADSHAW : [address]: Sharon Mendoza MD Acct: [id number] Unit: [id number] AGE: 45 Location: [facility] Re10/01/16 SEX: F Status: REG REF SPEC: [id number] WHITNEY: 10/01/16-[address] [facility] [address]: Sharon Mendoza MD REQ: [id number] RECD: 10/01/16 STATUS: COMP _ SOURCE: STOOL SPDESC: ORDERED: C. diff PCR Procedure Result Reported Site Stool Specimen Description Final 10/01/16- 1209 ML Stool Color Brown Stool Form Nonformed Stool Consistency Liquid Mucoid C. difficile PCR Final 10/01/16- 1252 ML Organism 1 027 Presumptive NEGATIVE Organism 2 Toxigenic C.diff NEGATIVE * ML - MAIN LAB ([facility]) . END OF REPORT * ML=Testing performed at Main Lab DEPARTMENT OF PATHOLOGY, [address] [place] [address] Alf Villarreal M.D. Director [facility] # [id number] 14 Specific serologic response to B. burgdorferi infection is not detected, but cannot rule out early infection during which low or undetectable antibody levels to B. burgdorferi may be present. If clinically indicated, a new serum specimen should be submitted in 7-14 days. ADDITIONAL INFORMATION CDC criteria require >=5 bands for IgG or >=2 bands for IgM for the Immunoblot to be considered positive. Bands (e.g.,p41) may be detected in patients without Lyme disease, and patterns not meeting the CDC criteria should be interpreted with caution. Immunoblot should be ordered only on specimens that are positive or equivocal by a FDA-licensed Lyme disease antibody screening test (e.g., EIA). Test Performed by: [place] [address] Business Attorney: Ganga Blanton II, M.D., Ph.D. 15 SEE RESULT BELOW Name: CARLOS BRADSHAW : [address]: Sharon Mendoza MD Acct: [id number] Unit: [id number] AGE: 45 Location: [facility] Re09/21/16 SEX: F Status: REG REF SPEC: [id number] WHTINEY: 09/21/[address]: Sharon Mendoza MD REQ: [id number] RECD: 09/21/16 STATUS: COMP _ SOURCE: STOOL SPDESC: ORDERED: Stool Culture, O P: Giar/Crypt Procedure Result Reported Site Stool Culture Final 09/23/16- 0953 ML Result No enteric pathogens isolated Testing for Salmonella, Shigella, Aeromonas, Plesiomonas, Yersinia and Campylobacter are included in a Stool Culture. Vibrio spp not routinely tested for in a stool culture. If testing is desired, please request specifically when placing test order. Sensitivities not routinely performed on stool isolates, as antibiotics may prolong the carriage rate of bacteria. Please contact the microbiology lab if sensitivities are required. Stool Specimen Description Final 09/21/16- 1245 ML Stool Color Brown Stool Form Nonformed Stool Consistency Liquid Shiga Toxin 1 2 Final 09/22/16- 0912 ML Organism 1 Negative Shiga Toxin 1 2 Immunochromatographic Assay CONTINUED ON NEXT PAGE * ML=Testing performed at [facility] Lab DEPARTMENT OF PATHOLOGY, [address] [place] [address] Alf Villarreal M.D. Director [facility] # [id number] Patient: CARLOS BRADSHAW [id number] (Continued) Specimen: [id number] Collected: 09/21/16 Received: 09/21/16 (Continued) Procedure Result Reported Site Shiga Toxin 1 2 Final (continued) 09/22/16- 911 O P: Giardia/Cryptospor Screen Final 09/21/16- 1504 ML Organism 1 Neg Cryptosporidium/Giardia Giardia and cryptosporidium antigen testing performed by enzyme immunoassay. If patient is immunocompromised or has traveled to or is from a developing country, a full ova and parasite exam with microscopic (OPMIC) is recommended. All samples will be held one month in case full ova and parasite testing is requested. Contact the Microbiology Department at [phone]. TEST LIMITATIONS: As with all diagnostic procedures, the results obtained should be used in conjunction with other clinical information available the physician, including confirmation by another method. Negative results can occur in samples containing antigen below lower limits of detection of the assay. One negative specimen does not rule out the possibility of a parasitic infection. To improve detection it is recommended that three specimens be collected on separate days over a period of not more than seven days. The use of colonic washes, aspirates or other diluted sample types has not been established and could affect the performance of the assay. Stool samples contaminated with an oily or particulate base (eg. Barium, mineral oil etc.) could interfere with the test and are not recommended. * ML - MAIN LAB ([facility]) . END OF REPORT * ML=Testing performed at Main Lab DEPARTMENT OF PATHOLOGY, [address] [place] [address] Alf Villarreal M.D. Director [facility] # [id number] 16 If is still suspected, please repeat test after 48 to 72 hours. This test detects intact HCG only and is indicated for the early detection of . 09 august 2106. 18 Reference Range and Interpretation: TnI (ng/mL) Interpretation Less Than 0.03 ng/mL Not supportive of diagnosis of MT 0.03 - 0.50 ng/mL Indeterminate: suggest serial studies if clinically indicated. Greater than 0.5 ng/mL Consistent with diagnosis of MT 19 Because ethnic data is not always readily available, this report includes an eGFR for both -Americans and non- Americans. The National Kidney Disease Education Program (NKDEP) does not endorse the use of the MDRD equation for patients that are not between the ages of 18 and 70, are , have extremes of body size, muscle mass, or nutritional status, or are non- or non-. According to the National Kidney Foundation, irrespective of diagnosis, the stage of the disease is based on the level of kidney function: Stage Description GFR(mL/min/1.73 m(2)) 1 Kidney damage with normal or decreased GFR 90 2 Kidney damage with mild decrease in GFR 60-89 3 Moderate decrease in GFR 30-59 4 Severe decrease in GFR 15-29 5 Kidney failure <15 (or dialysis) 20 RUN DATE: 10/20/13 [facility] LAB LIVE PAGE 1 RUN TIME: [address] [place] [address] Specimen Inquiry Name: CARLOS BRADSHAW : [address]: Stanford Suarez MD Acct: [id number] Unit: [id number] AGE: 42 Location: ENDO Re10/19/13 SEX: F Status: REG REF SPEC: [id number] WHITNEY: 10/19/[address]: Stanford Suarez MD REQ: [id number] RECD: 10/19/13 STATUS: COMP OTHR DR: Sharon Mendoza MD _ SOURCE: [facility]: ORDERED: Clotest Procedure Result Verified Site Clotest Final 10/20/13725 ML Clotest Negative END OF REPORT * ML=Testing performed at Main Lab DEPARTMENT OF PATHOLOGY, [facility] [employer] [place], [place] [address] Alf Villarreal M.D. Director [facility] Permit #[id number] 21 RUN DATE: 10/22/13 [facility] LAB LIVE PAGE 1 RUN TIME: [address] [facility] [address] [place], [place] [address] Specimen Inquiry Name: CARLOS BRADSHAW : [address]: Stanford Suarez MD Acct: [id number] Unit: [id number] AGE: 42 Location: ENDO Re10/19/13 SEX: F Status: REG REF SPEC: [id number] WHITNEY: 10/19/13- SUBM DR: Stanford Suarez MD REQ: [id number] RECD: 10/19/13 STATUS: PARIS HART DR: Mckayla Mendoza MD _ ORDERED: LEVEL IV FINAL DIAGNOSIS Small bowel, duodenum, biopsies: A. Small bowel mucosa with normal villous architecture and no significant pathologic abnormality. B. No evidence of viropathic changes or infectious agents identified. CLINICAL HISTORY Abdominal pain, GERD, globus sensation for EGD POST-OPERATIVE DIAGNOSIS Esophagus - normal, no erosion/stricture or Wheat's esophagus. Stomach - normal, no ulcer, gastritis, Duodenal bulb to third portion. Normal EGD. GROSS DESCRIPTION The specimen is received in formalin labeled Carlos Bradshaw Duodenal Biopsies and consists of a 0.9 x 0.8 x 0.3 cm. aggregate of multiple, webster-pink, irregular soft tissue fragments. Submitted entirely, one cassette. Signed (signature on file) Alf Villarreal MD 1449 END OF REPORT * ML=Testing performed at Main Lab DEPARTMENT OF PATHOLOGY, [address] [place] [address] Alf Villarreal M.D. Director [facility] Permit #[id number] 22 result riley'd 23 -- REFERENCE VALUE -- 25-HYDROXY D TOTAL (D2+D3) Optimum levels in the healthy population are 20-50, patients with bone disease may benefit from higher levels within this range. Test Performed by: [facility] - [address] [address] Business Attorney: Robbie Robbins III, M.D. 24 results riley. 25 result riley'd 26 resultreck'd 27 result riley'd 28 result riley'd 29 Because ethnic data is not always readily available, this report includes an eGFR for both -Americans and non- Americans. The National Kidney Disease Education Program (NKDEP) does not endorse the use of the MDRD equation for patients that are not between the ages of 18 and 70, are , have extremes of body size, muscle mass, or nutritional status, or are non- or non-. According to the National Kidney Foundation, irrespective of diagnosis, the stage of the disease is based on the level of kidney function: Stage Description GFR(mL/min/1.73 m(2)) 1 Kidney damage with normal or decreased GFR 90 2 Kidney damage with mild decrease in GFR 60-89 3 Moderate decrease in GFR 30-59 4 Severe decrease in GFR 15-29 5 Kidney failure <15 (or dialysis) 30 Analyte Specific Reagent: This test was developed and its performance characteristics determined by [facility]. It has not been cleared or approved by the U.S. Food and Drug Administration. Test Performed by: [facility] - [address] [address] Business Attorney: Robbie Robbins III, M.D. 31 RESULT RILEY'D 32 RESULT RILEY'D 33 RESULT RILEY'D 34 RESULT RILEY'D 35 RESULT RILEY'D 36 RESULT RILEY'D 37 No bands detected 38 Specific serologic response to B. burgdorferi infection is not detected, but cannot rule out early infection during which low or undetectable antibody levels to B. burgdorferi may be present. If clinically indicated, a new serum specimen should be submitted in 7-14 days. CDC criteria require >=5 bands for IgG or >=2 bands for IgM for the Immunoblot to be considered positive. Bands (e.g.,p41) may be detected in patients without Lyme disease, and patterns not meeting the CDC criteria should be interpreted with caution. Immunoblot should be ordered only on specimens that are positive or equivocal by a FDA-licensed Lyme disease antibody screening test (e.g., EIA). Test Performed by: [place] [address] Business Attorney: Robbie Robbins III, M.D. 39 Analyte Specific Reagent: This test was developed and its performance characteristics determined by [facility]. It has not been cleared or approved by the U.S. Food and Drug Administration. 40 Analyte Specific Reagent: This test was developed and its performance characteristics determined by [facility]. It has not been cleared or approved by the U.S. Food and Drug Administration. Test Performed by: [place] [address] Business Attorney: Robbie Robbins III, M.D. 41 Serologic response to B. burgdorferi infection is not detected, but cannot rule out early infection during which low or undetectable antibody levels to B. burgdorferi may be present. If clinically indicated, a new serum specimen should be submitted in 7-14 days. Test Performed by: [place] [address] Business Attorney: Robbie Robbins III, M.D. 42 1 43 . FEMALES: Non : 2.8-29.2 : 9.7-208.5 Postmenopausal : 1.8-20.3 MALES:................: 2.1-17.7 . 44 If is still suspected, please repeat test after 48 to 72 hours. . This test detects intact HCG only and is indicated for the early detection of . 45 Anion gap measurement may be of limited value in the presence of any alkalosis, especially in a combined acid base disorder. . 46 A metabolite of Naproxen, O-desmethylnaproxen, has been shown to interfere with the [place] method for measuring total bilirubin. Samples from patients who have taken Naproxen have shown spurious elevation in total bilirubin levels. 47 Because ethnic data is not always readily available, this report includes an eGFR for both -Americans and non- Americans. The National Kidney Disease Education Program (NKDEP) does not endorse the use of the MDRD equation for patients that are not between the ages of 18 and 70, are , have extremes of body size, muscle mass, or nutritional status, or are non- or non-. According to the National Kidney Foundation, irrespective of diagnosis, the stage of the disease is based on the level of kidney function: Stage Description GFR(mL/min/1.73 m(2)) 1 Kidney damage with normal or decreased GFR 90 2 Kidney damage with mild decrease in GFR 60-89 3 Moderate decrease in GFR 30-59 4 Severe decrease in GFR 15-29 5 Kidney failure <15 (or dialysis) 48 RUN DATE: 02/11/12 [facility] NMI LIVE PAGE 1 RUN TIME: 900 Specimen Inquiry RUN USER: INTERFACE Name: CARLOS BRADSHAW Matt Shipley#: [id number] Status: REG REF Re02/09/12 Age/Sex: 41/F Unit#: [id number] Location: Teddy Pratt : [birth year] SPEC #: [id number] WHITNEY: 02/09/12-999 STATUS: COMP REQ #: [id number] RECD: 02/09/12-[address] [facility] [address]: Kelly HEAD,Sharon Will SOURCE: STOOL ENTR: 02/09/12-[address]: JADEN: ORDERED: H. PYLORI AG ACT WKST: SO 02/11/12 #1 Procedure Result Verified Site > HELICO PYLORI ANTIGEN- STOOL Final 02/11/12- 0900 ML HELICOBACTER PYLORI AG, F NEGATIVE Test performed by: [facility] [address] [place] [address] - [facility] State Permit #[id number] [facility] [address] [facility] [place] [address] DEPARTMENT OF PATHOLOGY, [facility] DATES [place], [place] [address] [facility] Permit #[id number] Alf Villarreal M.D. Director Mariusz Lewis M.D. [employer] 49 Effective September 13, 2011 Vitamin D, 25-Hydroxy reference intervals will be changing to 30-100. . Recent studies consider the lower limit of 32.0 ng/mL to be a threshold for optimal health. Donaldo BW. J Nutr. 2004;135(2):317-22. Procedures Date CPT Code Description Status Comment 12/12/2017 88176 Dxa Bone Density Study One Or Completed More Sites Axial Skeleton 11/15/2016 Colonoscopy Completed 05/25/2016 33336 Vision Test- screening test of Completed visual acuity, quantitative, bila 06/14/2014 25596 Destruction Additiona 2 thru 14 Completed 06/14/2014 75635 Destruction-1 Beign Lesion Completed 02/19/2014 [facility] reminder 06/30/2013 69068 Electrocardiogram Complete Completed 08/17/2011 71990 Vision Test- screening test of Completed visual acuity, quantitative, bila Encounters Type Date Location Provider [facility] E/M Dx Office Visit 10/19/2017 3:00p Main Office Sharon Mendoza M.D. 63690 K58.0 K90.49 Office Visit 03/30/2017 11:00a Main Office Sharon Mendoza M.D. 43848 R25.2 K52.838 E04.1 Office Visit 01/29/2017 12:15p Main Office Lita Parisi stacy-C 70232 S61.211A W27.4xxA Office Visit 12/11/2016 11:00a Main Office Layton Lamar M.D. 51739 E04.1 Office Visit 10/13/2016 10:50a Main Office Sharon Mendoza M.D. 26911 K58.0 Office Visit 09/20/2016 11:20a Main Office Sharon Mendoza M.D. 51915 R19.7 Office Visit 05/25/2016 10:40a [facility] Office Sharon Mendoza M.D. 65753 Z00.00 R42 J30.89 G25.81 E55.9 Office Visit 05/18/2016 10:30a Main Office DAVID Tamez 62367 S16.1xxA Office Visit 04/06/2016 2:40p [facility] Office Sharon Mendoza 94571 R00.2 Naomi R42 G25.81 Office Visit 02/11/2016 3:00p Main Office Sharon Mendoza M.D. 04667 G25.81 E55.9 H81.11 R00.2 Office Visit 12/25/2015 1:00p [facility] Sharon Mendoza M.D. 51165 R00.2 G47.00 G25.81 E55.9 K21.9 Z84.89 Office Visit 10/13/2015 6:40p Main Office Sharon Mendoza M.D. 13090 R00.2 Office Visit 06/14/2014 3:20p Main Office Sharon Mendoza M.D. 48871 729.5 700 Office Visit 01/18/2014 11:10a [facility] Office Sharon Mendoza M.D. 43892 786.2 Office Visit 12/25/2013 1:00p Main Office Sharon Mendoza M.D. 73597 462 Office Visit 08/21/2013 2:40p Main Office Sharon Mendoza M.D. 70146 780.52 530.81 Office Visit 07/09/2013 11:30a Main Office JAQUELINE TamezP 00060 564.00 Office Visit 06/30/2013 9:30a Main Office Sharon Mendoza M.D. 10900 780.52 790.6 785.1 268.9 Office Visit 06/13/2013 9:10a Main Office Francisco Rios M.D. 60922 112.0 Office Visit 06/07/2013 3:10p [facility] Office Sharon Mendoza M.D. 53309 780.60 787.01 277.4 Office Visit 04/24/2013 12:30p Main Office Siobhan Santacruz-C 43750 E906.4 916.4 Office Visit 02/19/2013 7:40p Main Office Sharon Mendoza M.D. 32800 780.52 Office Visit 10/27/2012 3:00p [facility] Sharon Mendoza M.D. 31351 368.8 Office Visit 09/30/2012 10:30a Main Office Lita Siobhan Parisi-C 78372 782.9 Office Visit 05/05/2012 10:00a Main Office DAVID Tamez 87946 V70.3 V70.0 Office Visit 02/08/2012 3:50p Main Office Sharon Mendoza M.D. 21711 789.06 Office Visit 01/12/2012 3:30p Main Office Siobhan Santacruz-C 40601 558.9 Office Visit 09/20/2011 6:40p Main Office Sharon Mendoza M.D. 87924 311 Office Visit 08/17/2011 2:00p Main Office Sharon Mendoza M.D. 66144 V70.0 311 625.3 995.3 268.9 791.7 V72.0 Office Visit 06/29/2011 10:20a Main Office Sharon Mendoza M.D. 17509 995.3 625.3 Plan of Care 10/26/2018 - Sharon Mendoza M.D.R07.89 Other chest painComments:possibly GERD. or rib out of place. DGL - try over the counter prilosec. Will need to be worked upif it comes back again. You will need an EKG and bloodwork., possibly a chest xray.R00.2 PalpitationsNew Labs:Hemoglobin (Fma/CMC/CTX) Comments:If they start to bother you more, ie to frequent, and /or sob, dizzy, they could be worked up again.Make sure you stay well hydrated, plenty of fruits and vegetables. continue your vitamin .R05 CoughComments:Your exam is normal.AllComments:~B_~U_Medication Management~b_~u_ Patient Understands medications she's taking? Yes No Are there Barriers to Adherence? Yes No Has the patient been asked about herbal supplements and therapies, and OTC meds? Yes No
[2018-10-28 17:28] LABS: ABS Basophils 0.1 10^3/ul (0-0.2); ABS Eosinophils 0.1 10^3/ul (0-0.6); ABS Monocytes 0.4 10^3/ul (0-0.8); ABS Neutrophils 4.8 10^3/ul (1.5-7.7); ABS Nucleated RBC 0 10^3/ul; Eosinophil % 1.7 %; Hematocrit 43 % (35-47); Hemoglobin 14.4 g/dl (12.0-16.0); Lymphocyte % 27.5 %; Mean Corpuscular HGB Conc 34 g/dl (31-36); Mean Corpuscular Hemoglobin 32 pg (27-31); Mean Corpuscular Volume 95 fL (80-97); Mean Platelet Volume 7.2 fL (7.4-10.4); Nucleated Red Blood Cells % 0; Platelet Count 251 10^3/ul (150-450); Red Cell Distribution Width 13 % (10.5-15); White Blood Count 7.4 10^3/ul (3.5-10.8)
[2018-10-28 17:40] LABS: Activated Partial Thrombo Time 30.6 seconds (26.0-36.3); INR 0.89 (0.77-1.02)
[2018-10-28 17:46] LABS: Albumin 4.8 g/dL (3.2-5.2); Albumin/Globulin Ratio 1.5 (1-3); BUN/Creatinine Ratio 21.9 (8-20); Calcium 9.6 mg/dL (8.6-10.3); EGFR Non-African American 85.1 (>60); Globulin 3.1 g/dL (2-4); Potassium 4.7 mmol/L (3.5-5.0); Total Bilirubin 0.4 mg/dL (0.2-1.0); Total Protein 7.9 g/dL (6.4-8.9)
--- NOTE | 2018-10-28 18:20 | ED ---
Medical Screening - HPI Summary HPI Summary: 47[facility]. She denies any GI bleed. No blood in stool. No dark tarry stool. She denies any history of abnormal vaginal bleeding. States her periods are normal and no excess bleeding. States she is premenopausal. She denies any history of anemia. She is not on blood thinners. She has a history of anemia. States she feels fine. No chest pain or shortness breath. She offers no complaints at this time. - History of Current Complaint Chief Complaint: EDGeneral Stated Complaint: ABNORMAL LABS Time Seen by Provider: 10/28/18 17:37 PMH/Surg Hx/FS Hx/Imm Hx Endocrine/Hematology History: Denies: Hx Diabetes, Hx Anemia Respiratory History: Reports: Hx Asthma - HISTORY OF-RELATED TO ENVIRONMENTAL ALLERGIES- NO PROBLEMS RECENTLY GI History: Reports: Hx Gastroesophageal Reflux Disease - HISTORY OF- NO MEDICATION FOR- PER PATIENT, Hx Irritable Bowel Denies: Hx Jaundice Sensory History: Denies: Hx Contacts or Glasses, Hx Hearing Aid Opthamlomology History: Denies: Hx Contacts or Glasses Psychiatric History: Reports: Hx Anxiety - NO MEDICATION FOR AT THIS TIME, Hx Depression - NO MEDICATION FOR AT THIS TIME - Cancer History Hx Chemotherapy: No Hx Radiation Therapy: No - Surgical History Surgery Procedure, Year, and Place: [place] [place] Anesthesia Reactions: No Infectious Disease History: No Infectious Disease History: Reports: Hx Hepatitis - ACUTE-VIRAL- 3 YEARS AGO- PER PATIENT-NO PROBLEMS AT THIS TIME Denies: Traveled Outside the [place] in Last 30 Days - Family History Known Family History: Positive: Non-Contributory - Social History Alcohol Use: None Substance Use Type: Reports: Marijuana Substance Use Comment - Amount & Last Used: once a month marijuana Smoking Status (MU): Never Smoked Tobacco Review of Systems Negative: Fever Negative: Chest Pain Negative: Shortness Of Breath Negative: Abdominal Pain All Other Systems Reviewed And Are Negative: Yes Physical Exam Triage Information Reviewed: Yes Vital Signs On Initial Exam: Initial Vitals Temp Pulse Resp BP Pulse Ox 99.1 F 90 16 144/69 99 10/28/18 16:14 10/28/18 16:14 10/28/18 16:14 10/28/18 16:14 10/28/18 16:14 Vital Signs Reviewed: Yes Appearance: Positive: Well-Appearing Skin: Positive: Warm, Dry Head/Face: Positive: Normal Head/Face Inspection Eyes: Positive: Normal, Conjunctiva Clear ENT: Positive: Pharynx normal Respiratory/Lung Sounds: Positive: Clear to Auscultation, Breath Sounds Present Cardiovascular: Positive: Normal, RRR Abdomen Description: Positive: Nontender, Soft Bowel Sounds: Positive: Present Musculoskeletal: Positive: Normal Neurological: Positive: Normal Psychiatric: Positive: Normal Diagnostics - Vital Signs Vital Signs Temp Pulse Resp BP Pulse Ox 10/28/18 16:14 99.1 F 90 16 144/69 99 - Laboratory Lab Results: Lab Results 10/28/18 10/28/18 10/28/18 Range/Units 16:30 16:30 16:30 WBC 7.4 (3.5-10.8) 10^3/ul RBC 4.50 (4.00-5.40) 10^6/ul Hgb 14.4 (12.0-16.0) g/dl Hct 43 (35-47) % MCV 95 (80-97) fL MCH 32 H (27-31) pg MCHC 34 (31-36) g/dl RDW 13 (10.5-15) % Plt Count 251 (150-450) 10^3/ul MPV 7.2 L (7.4-10.4) fL Neut % (Auto) 64.3 % Lymph % (Auto) 27.5 % Latimer % (Auto) 5.3 % Eos % (Auto) 1.7 % Baso % (Auto) 1.2 % Absolute Neuts (auto) 4.8 (1.5-7.7) 10^3/ul Absolute Lymphs (auto) 2.0 (1.0-4.8) 10^3/ul Absolute Monos (auto) 0.4 (0-0.8) 10^3/ul Absolute Eos (auto) 0.1 (0-0.6) 10^3/ul Absolute Basos (auto) 0.1 (0-0.2) 10^3/ul Absolute Nucleated RBC 0 10^3/ul Nucleated RBC % 0 INR (Anticoag Therapy) 0.89 (0.77-1.02) APTT 30.6 (26.0-36.3) seconds Sodium 138 (135-145) mmol/L Potassium 4.7 (3.5-5.0) mmol/L Chloride 103 (101-111) mmol/L Carbon Dioxide 27 (22-32) mmol/L Anion Gap 8 (2-11) mmol/L BUN 16 (6-24) mg/dL Creatinine 0.73 (0.51-0.95) mg/dL Est GFR ( Amer) 103.0 (>60) Est GFR (Non-Af Amer) 85.1 (>60) BUN/Creatinine Ratio 21.9 H (8-20) Glucose 99 (70-100) mg/dL Calcium 9.6 (8.6-10.3) mg/dL Total Bilirubin 0.40 (0.2-1.0) mg/dL AST 25 (13-39) U/L ALT 21 (7-52) U/L Alkaline Phosphatase 45 (34-104) U/L Total Protein 7.9 (6.4-8.9) g/dL Albumin 4.8 (3.2-5.2) g/dL Globulin 3.1 (2-4) g/dL Albumin/Globulin Ratio 1.5 (1-3) Blood Type Antibody Screen 10/28/18 Range/Units 16:30 WBC (3.5-10.8) 10^3/ul RBC (4.00-5.40) 10^6/ul Hgb (12.0-16.0) g/dl Hct (35-47) % MCV (80-97) fL MCH (27-31) pg MCHC (31-36) g/dl RDW (10.5-15) % Plt Count (150-450) 10^3/ul MPV (7.4-10.4) fL Neut % (Auto) % Lymph % (Auto) % Latimer % (Auto) % Eos % (Auto) % Baso % (Auto) % Absolute Neuts (auto) (1.5-7.7) 10^3/ul Absolute Lymphs (auto) (1.0-4.8) 10^3/ul Absolute Monos (auto) (0-0.8) 10^3/ul Absolute Eos (auto) (0-0.6) 10^3/ul Absolute Basos (auto) (0-0.2) 10^3/ul Absolute Nucleated RBC 10^3/ul Nucleated RBC % INR (Anticoag Therapy) (0.77-1.02) APTT (26.0-36.3) seconds Sodium (135-145) mmol/L Potassium (3.5-5.0) mmol/L Chloride (101-111) mmol/L Carbon Dioxide (22-32) mmol/L Anion Gap (2-11) mmol/L BUN (6-24) mg/dL Creatinine (0.51-0.95) mg/dL Est GFR ( Amer) (>60) Est GFR (Non-Af Amer) (>60) BUN/Creatinine Ratio (8-20) Glucose (70-100) mg/dL Calcium (8.6-10.3) mg/dL Total Bilirubin (0.2-1.0) mg/dL AST (13-39) U/L ALT (7-52) U/L Alkaline Phosphatase (34-104) U/L Total Protein (6.4-8.9) g/dL Albumin (3.2-5.2) g/dL Globulin (2-4) g/dL Albumin/Globulin Ratio (1-3) Blood Type O Positive Antibody Screen Negative Result Diagrams: 10/28/18 16:30 10/28/18 16:30 Lab Statement: Any lab studies that have been ordered have been reviewed, and results considered in the medical decision making process. Course/Dx - Course Course Of Treatment: 47-[facility]. She denies any GI bleed. No blood in stool. No dark tarry stool. She denies any history of abnormal vaginal bleeding. States her periods are normal and no excess bleeding. States she is premenopausal. She denies any history of anemia. She is not on blood thinners. She has a history of anemia. States she feels fine. No chest pain or shortness breath. She offers no complaints at this time. On exam has a normal physical exam. H&H is normal. Laboratories without any significant abnormality. Discussed likely was an error with fingerstick. told to follow up with primary as needed. Patient understands agrees with plan. - Diagnoses Provider Diagnoses: Encounter for medical screening examination Discharge - Sign-Out/Discharge Documenting (check all that apply): Patient Departure - Discharge Plan Condition: Good Disposition: HOME Referrals: Sharon Mendoza MD [Primary Care Provider] - Additional Instructions: return to ED if develop any new or worsening symptoms - Billing Disposition and Condition Condition: GOOD Disposition: Home
[2018-10-28 18:50] VITALS: BP 138/62
== END 2018-10-28 18:30 | disposition home or self-care (01) ==
LOC: ED 16:05
DX: D64.9 Anemia, unspecified (principal)
CPT/HCPCS: 36415; 80053; 85025; 85610; 85730; 86850; 86900; 86901; 93005; 99282